=== PATIENT | male | born 1950 | race Two or more races ===

== ENCOUNTER 2020-11-02 18:09 | Emergency (ER) | payer OTHER ==
[2020-11-02 18:36] VITALS: BP 148/80; PULSE 93; TEMP 98.1; BMI 26.6
[2020-11-02 20:08] LABS: BASO % 0.6 % (0-2.0); EOS % 0.5 % (0-4.5); HEMOGLOBIN 13.1 GM/dL (11.7-16.9); LYMPH % 16.4 % (8-40); MCH 29.9 pg (25.7-33.7); MCHC 34.5 g/dl (32.0-35.9); MEAN CELL VOLUME 86.7 fl (80-96); MEAN PLT VOLUME 8.3 fl (7.5-11.1); MONO % 12.9 % (3.8-10.2); NEUT % 69.6 % (42.8-82.8); PLATELET COUNT 240 K/MM3 (134-434); RBC 4.38 M/mm3 (4.00-5.60); RDW 14.3 % (11.9-15.9); WHITE BLOOD COUNT 15.8 K/mm3 (4.0-10.0)
[2020-11-02 20:11] LABS: EPI CELLS 4 /uL (0-25.1); HYALINE CASTS 0 /uL (0-3.1); URINE APPEARANCE CLEAR; URINE BACTERIA 5 /uL (0-1359); URINE BILIRUBIN NEGATIVE (NEGATIVE); URINE COLOR YELLOW; URINE GLUCOSE (UA) NEGATIVE (NEGATIVE); URINE KETONE NEGATIVE (NEGATIVE); URINE LEUK ESTERASE TRACE (NEGATIVE); URINE NITRITE NEGATIVE (NEGATIVE); URINE PROTEIN NEGATIVE (NEGATIVE); URINE RBC 3 /uL (0-23.9); URINE WBC 30 /uL (0-25.8)
[2020-11-02 20:51] LABS: BLOOD UREA NITROGEN 27.4 mg/dL (7-18); CALCIUM 9.1 mg/dL (8.5-10.1)
[2020-11-02 20:52] LABS: ALBUMIN 3.4 g/dl (3.4-5.0)
[2020-11-02 20:55] LABS: CREATININE 1.7 mg/dL (0.55-1.3)
[2020-11-02 20:57] LABS: BILIRUBIN,TOTAL 0.8 mg/dL (0.2-1); TOT PROT 7.8 g/dl (6.4-8.2)
== END 2020-11-02 21:59 | disposition home or self-care (01) ==
LOC: JER 18:09
DX: N39.0 Urinary tract infection, site not specified (principal)
CPT/HCPCS: 36415; 76857; 80053; 81003; 85025; 87086; 99283-25